=== PATIENT | female | born 1995 | race Caucasian/White ===

== ENCOUNTER 2016-08-05 22:30 | Emergency (ER) | payer MEDICAID | END 2016-08-06 01:03 | disposition home or self-care (01) | LOC: ER 22:30 | DX: H66.002 Acute suppurative otitis media without spontaneous rupture of ear drum, left ear (principal); Z33.1 Pregnant state, incidental; N30.00 Acute cystitis without hematuria | CPT/HCPCS: 81001; 87088 ==

== ENCOUNTER 2016-08-12 19:24 | Emergency (ER) | payer MEDICAID ==
[2016-08-12] MEDS ORDERED: LIDOCAINE 1% MDV 20 ML ONE (21:02)
[2016-08-12] MEDS ORDERED: CEFTRIAXONE 1 GM VIAL ONE (21:03)
== END 2016-08-12 22:18 | disposition home or self-care (01) ==
LOC: ER 19:24
DX: B37.3 Candidiasis of vulva and vagina (principal); N76.0 Acute vaginitis; Z3A.17 17 weeks gestation of pregnancy
CPT/HCPCS: 81001; 87088; 87800; 96372

== ENCOUNTER 2016-08-29 13:37 | Emergency (ER) | payer MEDICAID ==
[2016-08-29] MEDS ORDERED: KAYEXOLATE 15 GM/60 ML BTL ONE (21:12)
== END 2016-08-29 19:27 | disposition home or self-care (01) ==
LOC: ER 13:37
DX: O20.0 Threatened abortion (principal); Z3A.19 19 weeks gestation of pregnancy; F17.210 Nicotine dependence, cigarettes, uncomplicated
CPT/HCPCS: 36415; 76815; 80053; 81001; 84702; 85025; 87491; 87591; 87800